=== PATIENT | female | born 1950 | race Caucasian/White ===

== ENCOUNTER 2019-11-14 13:52 | Observation (INO) | payer MEDICARE, SELFPAY ==
--- NOTE | ~2019-11-14 | US_ITS ---
EXAMINATION: US carotid duplex BI DATE: 11/15/2019 10:25 INDICATION: Right hemiparesis. TECHNIQUE: Grayscale, color Doppler, and pulsed Doppler images of the cervical carotid arteries were obtained. The degree of vessel stenosis is placed in one of the following categories: normal, <50%, 5 0-69%, >=70% but less than near-occlusion, near-occlusion, or total occlusion. Note that percent sten osis relative to normal distal artery lumen diameter is indirectly measured from velocity measurement s as described by Aristides, et al. Radiology 2003; 229:340-346. COMPARISON: None. FINDINGS: RIGHT: The right common carotid artery (CCA) peak systolic velocity (PSV) is 98 cm/s. The right internal car otid artery (ICA) PSV is 92 cm/s. The right ICA end-diastolic velocity (EDV) is 18 cm/s. The right IC A/CCA PSV ratio is 0.9. Grayscale and color Doppler images yield an estimate of <50% diameter reducti on from plaque in the ICA. There is antegrade flow in the right vertebral artery. LEFT: The left CCA PSV is 111 cm/s. The left ICA PSV is 136 cm/s. The left ICA EDV is 19 cm/s. The left ICA /CCA PSV ratio is 1.2. Grayscale and color Doppler images yield an estimate of <50% diameter reductio n from plaque in the ICA. There is antegrade flow in the left vertebral artery. IMPRESSION: 1. <50% stenosis in the right internal carotid artery. 2. <50% stenosis in the left internal carotid artery. Reviewed, dictated and finalized at location A.
--- NOTE | ~2019-11-14 | CT_ITS ---
EXAMINATION: CTA brain carotid EXAM DATE: 11/16/2019 10:27 INDICATION: Right hemiparesis. TECHNIQUE: Noncontrast head CT. Spiral CTA of the carotid arteries was performed with intravenous i njection 100 cc of Omnipaque 350. Axial, coronal, sagittal reformatted images reviewed. Additional r eformatted images created on dedicated 3-D workstation. NASCET comparable standard used to assess th e degree of arterial stenosis. Spiral CT angiogram cerebral arteries performed with the same intrave nous injection of contrast. Source images of the brain CTA transferred to dedicated workstation for 3 -D rotational image creation. Coronal, sagittal maximum intensity pixel images also reviewed. The d ose-length product (DLP) for this examination was 1673.65 mGy-cm. The exposure was tailored accordi ng to patient size, and iterative reconstruction (ASIR) was used as additional dose reduction techniq ue. Correlation is made to brain MRI examination 11/15/2019. FINDINGS: There is mild bilateral carotid bulb and siphon the left vertebral artery is dominant. Lisa rial sclerosis with 0% stenosis bilaterally. There is no carotid or vertebral basilar arterial disse ction or fibromuscular dysplasia. There are no cerebral artery aneurysms. There is symmetric cerebral artery arborization. The sagittal, transverse and sigmoid sinuses enhance normally, no venous sinus thrombosis. Internal cerebral veins also enhance normally. There is no acute intraparenchymal hemorrhage. No evidence of intraparenchymal brain mass lesion. N o evidence of acute infarction. There is mild to moderate periventricular and subcortical hypodensity , nonspecific but probably related to small vessel ischemic disease. There is mild prominence of th e sulci and ventricles related to cerebral atrophy. There is intracranial carotid arteriosclerosis. There is no mass effect or midline shift. There is no obstructive hydrocephalus suspected. There are no extra-axial collections. There are no calvarial acute fractures. Lung apices are clear. There is advanced cervical arthropathy. IMPRESSION: 1. No cervical arterial dissection or cerebral artery aneurysm. Bilateral 0% carotid stenosis. 2. Microangiopathy and cerebral atrophy. 3. Cervical spondylosis. Reviewed, dictated and finalized at location A. IMPRESSION: 1. No cervical arterial dissection or cerebral artery aneurysm. Bilateral 0% c arotid stenosis. 2. Microangiopathy and cerebral atrophy. 3. Cervical spondylosis.
--- NOTE | ~2019-11-14 | MR_ITS ---
EXAMINATION: MR brain/brain stem wo con DATE: 11/15/2019 15:44 INDICATION: Stroke symptoms with right hemiparesis. TECHNIQUE: Magnetic resonance imaging (MRI) of the brain and brainstem was performed without intraven ous contrast. Sequences included sagittal and axial T1-weighted SE, axial diffusion-weighted FS SE, a xial T2*-weighted GRE, axial T2-weighted FLAIR, and axial T2-weighted FSE. Apparent diffusion coeffic ient (ADC) maps were created. COMPARISON: None. FINDINGS: There are no areas of restricted diffusion to suggest acute infarction. No intracranial hemorrhage or abnormal intracranial mass lesion. There are scattered areas of nonspecific increased T2-weighted si gnal intensity in the cerebral white matter, predominantly involving the deep and periventricular whi te matter. There are no intraparenchymal signal abnormalities seen on the other pulse sequences. The ventricles are symmetric and normal in size with normal variant cavum septum pellucidum. There are no abnormal extra-axial fluid collections. Flow voids are seen in the cerebral arteries on the T2-weigh david sequences consistent with their expected patency. Small right mastoid effusion. Mild mucosal thic kening in the bilateral ethmoid sinuses. Visualized orbits and soft tissues are unremarkable. IMPRESSION: 1. No acute stroke or other acute intracranial process. 2. Scattered periventricular predominant nonspecific white matter T2 hyperintensity which is within n ormal limits for age and likely sequela of chronic small vessel ischemic disease. Reviewed, dictated and finalized at location A. IMPRESSION: 1. No acute stroke or other acute intracranial process. 2. Scattered periventricular predominant nonspecific white matter T2 hyperinten sity which is within normal limits for age and likely sequela of chronic small vessel ischemic disease.
--- NOTE | ~2019-11-14 | MR_ITS ---
EXAMINATION: MR cervical spine wo con DATE: 11/15/2019 20:42 INDICATION: Right upper extremity weakness and numbness. TECHNIQUE: Magnetic resonance imaging (MRI) of the cervical spine was performed without intravenous c ontrast. Sequences included sagittal T2-weighted FSE, sagittal T2-weighted FS FSE, sagittal T1-weight ed FSE, axial MERGE and axial T2-weighted FSE. COMPARISON: None FINDINGS: Evaluation mildly limited by mild to moderate motion artifact on the axial sequences and mild motion blurring on the sagittal sequences. Mild reversal of the normal cervical lordosis. 2 mm anterolisthes is C7 on T1. Vertebral body heights are normal. Prominent ossification along the anterior longitudina l ligament of C4-C7. Bone marrow signal intensity is normal. Moderate to severe disc height loss at C 4-C5, C5-C6 and C6-C7. Mild disc height loss at C7-T1. Cord signal intensity is normal. Cervical soft tissues are unremarkable. The following disc levels are specifically discussed: C2-C3: Disc is bulging. There is mild bilateral uncovertebral joint osteoarthritis. There is moderate bilateral facet joint osteoarthritis. There is mild bilateral neural foraminal stenosis. There is mo derate central canal stenosis measuring 6 mm AP in the mid sagittal plane and intending both the dors al and ventral surfaces of the cord. C3-C4: The disc does not extend beyond the endplate margin. There is mild bilateral uncovertebral pablito nt osteoarthritis. There is mild right and severe left facet joint osteoarthritis. There is old right and moderate left neural foraminal stenosis. There is no central canal stenosis. C4-C5: The disc does not extend beyond the endplate margin. There is severe bilateral uncovertebral j oint osteoarthritis. There is mild bilateral facet joint osteoarthritis. There is mild to moderate ri ght and moderate left neural foraminal stenosis. There is no central canal stenosis. C5-C6: Disc is mildly bulging. There is severe bilateral uncovertebral joint osteoarthritis. There is mild bilateral facet joint osteoarthritis. There is moderate bilateral neural foraminal stenosis. Th ere is mild central canal stenosis. C6-C7: Disc is mildly bulging. There is severe bilateral uncovertebral joint osteoarthritis. There is mild left and moderate right facet joint osteoarthritis. There is mild right and moderate left neura l foraminal stenosis. There is mild central canal stenosis. C7-T1: Disc is bulging. There is no uncovertebral joint osteoarthritis. There is severe bilateral fac et joint osteoarthritis. There is mild bilateral neural foraminal stenosis. There is mild central can al stenosis. IMPRESSION: 1. Severe cervical spondylosis. Reviewed, dictated and finalized at location A.
[2019-11-14 14:20] VITALS: BP 132/73; PULSE 76; RESP 18; TEMP 37.7; O2SAT 96
--- NOTE | 2019-11-14 14:45 | ADMGEN ---
This patient, Sheryl Obrien, was admitted to [facility] Surg Room 329-01. Patient/family oriented to hospital policies and general routines including ID bracelet, bed and alarms, visiting hours, pain management, procedures, bathroom and other care routines, personal items, smoking policy, room service/diet, and visiting hours. Valuables list has been completed. Information on how to activate the Rapid Response Team has been discussed. Patient/Family are encouraged to report perceived risks to care and to ask questions if they do not understand what they are told or what they should do.
[2019-11-14 16:43] VITALS: BMI 20.9
[2019-11-14 17:00] VITALS: PULSE 84
--- NOTE | 2019-11-14 19:00 | PM.IMHP ---
H&P: HPI History of Present Illness Chief complaint: Stroke symptoms and chest pain. Narrative: Sheryl Obrien is a 69-year-old female smoker with history of stroke, coronary artery disease, hypertension, COPD, and lupus who is being directly admitted to the hospitalist service from the emergency department at [facility] for further evaluation of stroke symptoms and chest pain. She presented to the emergency department at the outside hospital earlier today with complaints of midsternal chest heaviness associated with some mild shortness of breath as well as garbled speech, right hand weakness, and right arm tingling. It is also noted that she was seen at that emergency department yesterday with chest pain, and was discharged home. Regarding the chest pain, the patient tells me that it was essentially there when she got up this morning and is not necessarily associated with activities. She had some mild shortness of breath with that, but goes on to say that is not unusual for her to have shortness of breath. It does not sound as though she has had any chest pain since not long after going to the emergency department today. She tells me that for the past 2 days her speech has been garbled (she is edentulous and does not wear dentures, and she does admit that at time some people cannot understand her very well) and this morning she had right hand weakness and numbness/tingling in the right upper extremity. She is now complaining of pain, that she has a difficult time describing, in the right forearm only. All symptoms resolved in the emergency department at the outside hospital, and have not returned. She denies vertigo, auditory and visual changes, palpitations, and cardiac dysrhythmia (although occasionally she will have racing heart which she attributes to stress). Review of Systems Review of Systems: Narrative: Twelve systems were reviewed with pertinent positives and negatives as per HPI. No fever, chills, or sweats. She has a chronic smoker's cough which is unchanged. No recent cold or flu symptoms. No pleuritic pain. She denies lower extremity edema and calf pain. No history of venous thromboembolism. She has chronic back pain due to arthritis of the spine. Except as documented, all other systems were reviewed and are negative. [facility] Past Medical History Medical History (Updated 11/14/19 @ 22:15 by Caryl G. Gerling, PA-C) Bipolar disorder Cerebrovascular accident Chronic obstructive pulmonary disease With history of stent. Patient of Dr. Cervantes. Coronary artery disease Depression with anxiety Dyslipidemia Essential hypertension Kidney stones Osteoarthritis of spine Schizophrenia She was diagnosed with this many years ago, but more recently another psychiatrist has told her that she does not have schizophrenia however she does have auditory hallucinations for which she takes Haldol. Systemic lupus erythematosus Tobacco dependence Surgical History Surgical History (Updated 11/14/19 @ 22:11 by Caryl Smith PA-C) History of cardiac catheterization With history of stent. History of cholecystectomy History of hysterectomy History of tubal ligation Family History Family History Father Acute myocardial infarction Mother Acute myocardial infarction Sibling Acute myocardial infarction Social History Social History (Updated 11/14/19 @ 22:12 by Caryl Smith PA-C) Social History: The patient lives in [place] with her . They have 5 children. She smokes between 1 to 1.5 packs of cigarettes per day. She denies alcohol and illicit substance abuse. She designates her , Lucian, as her surrogate decision maker and she wishes to be a full code. Smoking packs per day: 1 Smoking cigarettes per day: 20.0 Years smoked: 44 Smoking pack-years: 44.00 Smoking status: Current every day smoker Tobacco type: cigarettes
[2019-11-14 20:00] VITALS: PULSE 80
[2019-11-14 22:45] VITALS: BP 124/87; PULSE 80; RESP 20; TEMP 36.9; O2SAT 93
[2019-11-14 22:50] LABS: Troponin I < 0.012 ng/mL (0.000-0.034)
[2019-11-14] MEDS: LOVASTATIN 20 MG TABLET 40 MG PO (22:58)
[2019-11-14] MEDS: MIRTAZAPINE 15 MG TABLET PO (22:58)
[2019-11-14] MEDS: HALOPERIDOL 5 MG TABLET 15 MG PO (22:58)
[2019-11-14] MEDS: BENZTROPINE MESYLATE 0.5 MG TABLET PO (22:58)
[2019-11-14] MEDS: BACLOFEN 10 MG TABLET PO (22:58)
[2019-11-15] VITALS (9 sets, daily range): BP systolic 104–137; BP diastolic 67–84; PULSE 63–111; RESP 14–18; TEMP 36.2–37.2; O2SAT 92–97
--- NOTE | 2019-11-15 | ECHO_ITS ---
Patient Info Name: Sheryl Obrien Age: 69 years : 1950 Gender: Female Ht: 64 in Wt: 122 lbs BSA: 1.58 m2 HR: 73 bpm BP: 129 / 84 mmHg Heart Rhythm: Sinus Rhythm Technical Quality: Good Exam Date: 11/15/2019 2:46 PM Exam Location: [facility] Pulmonary Patient Status: Outpatient Admit Date: 11/14/2019 Staff Ordering Physician: Gena Salazar PA-C Shop Helper: Rhoda Brush RDCS Attending Provider: Gena Salazar PA-C Referring Physician: Martin LAZO; Exam Type: CA echo doppler color flow Study Info Indications - chest pain Complete two-dimensional, color flow and Doppler transthoracic echocardiogram is performed. Summary 1. Left ventricular systolic function is normal, estimated at 60-65%. 2. The left ventricular diastolic function is grade I diastolic dysfunction. 3. Right ventricular chamber dimension is normal. 4. No significant valvular pathology. Left Ventricle Left ventricular chamber dimension is normal. Left ventricular systolic function is normal, estimated at 60-65%. The left ventricular diastolic function is grade I diastolic dysfunction. Right Ventricle Right ventricular chamber dimension is normal. Left Atria Left atrial chamber dimension is normal. Right Atria Right atrial chamber dimension is normal. Aortic Valve The aortic valve is normal. Pulmonic Valve The pulmonic valve is normal. Mitral Valve The mitral valve has normal leaflets. There is no mitral valve regurgitation. Tricuspid Valve The tricuspid valve leaflets are normal. Pericardium/Pleural The pericardium appears normal. Aorta The aortic root size at the sinus of Valsalva is normal. Left Ventricular Outflow Tract Name Value Normal LVOT 2D LVOT Diameter 2.0 cm LVOT Doppler LVOT Peak Gradient 4 mmHg LVOT Mean Gradient 2 mmHg LVOT VTI 19 cm LVOT VTI/AV VTI Ratio 0.9 LVOT Stroke Volume 63 ml LVOT CO 15.0 l/min LVOT CI 9.5 l/min/m2 Pulmonic Valve Name Value Normal PV Doppler PV Peak Gradient 2 mmHg Mitral Valve Name Value Normal MV Doppler MV Decel [place] 200 cm/s2 MV PHT 84 ms MV Area (PHT) 2.6 cm2 4.0-5.0 MV Diastolic Function MV E Peak Velocity 58 cm/s
[2019-11-15 07:28] LABS: Folic Acid 16.4 ng/mL (2.76->20)
[2019-11-15] MEDS: BACLOFEN 10 MG TABLET PO ×2 (08:15→16:50)
[2019-11-15] MEDS: FLUOXETINE HCL 20 MG CAP PO (08:15)
[2019-11-15] MEDS: lisinopriL 10 MG TABLET PO (08:15)
[2019-11-15] MEDS: CLOPIDOGREL BISULFATE 75 MG TABLET PO (08:15)
[2019-11-15] MEDS: BENZTROPINE MESYLATE 0.5 MG TABLET PO ×2 (08:16→16:50)
[2019-11-15] MEDS: ISOSORBIDE MONONITRATE 30 MG TAB.ER.24H PO ×2 (08:16→16:50)
[2019-11-15] MEDS: HALOPERIDOL 5 MG TABLET 15 MG PO ×2 (08:16→16:51)
--- NOTE | 2019-11-15 15:15 | PCOTNOTE ---
Attempted OT evaluation. Patient out for MRI. Will continue to attempt.
--- NOTE | 2019-11-15 15:43 | PM.CNCAR ---
Assessment and Plan Additional Plan 69-year-old lady with history of hypertension, smoking and some coronary artery disease with previous intervention in [place] a number of years ago. She was transferred [facility] from their institutions emergency room yesterday evening because of symptoms concerning for the possibility of a CVA and apparently there is no neurological excellence consultant at their institution. Earlier in the day she had some chest pain that sounds sharp and atypical of ischemia. Her biomarkers do not show any evidence of an acute coronary syndrome. She is not having any chest pain symptoms since then. At this time I do not believe we need to initiate an ischemia workup at our hospital since the symptoms are very atypical. The principal reason for her being at [place] is to assess her neurological status and that will be deferred to the primary team and the Neurology excellence consultant. At this time I do not have any specific cardiac recommendations to make. I will follow her with you while she is at this hospital Jake Oneill MD [facility] History of Present Illness History of Present Illness Consult date/time: date of service:11/15/19 15:43 Consult reason: chest pain Reason For Visit: Stroke symptoms and chest pain. Narrative: This is a 69-year-old lady with whom I have not previously seen being evaluated at the request of the hospitalist because of chest pain. The patient is unknown to me prior to this encounter. She apparently has a history of coronary artery disease having undergone previous percutaneous revascularization by her stack attendant to practice is over in [place]. She actually came to the emergency room [place] last night not with obvious cardiac complaints but with complaints concerning for a CVA. She indicated she had some slurring of the speech and some weakness in the right upper and lower extremity. Presumably because there is no Neurology excellence consultant available at that hospital she was transferred over here to a [facility] for evaluation. She states that she still has some weakness in the right arm and can't lift it above the shoulder length easily. She also has some ongoing slurring of her speech. She indicates her lower right leg seems to be pretty much back to normal. Before all this started yesterday she had some chest pain as well that was self-limited she thinks it lasted about 30 minutes she is very hard to pin down exactly when that occurred but it was earlier in the day. It was a dull sensation to sometimes which she described as a shooting pain that was in the region of the left precordium. Was not associated with shortness of breath nausea vomiting or diaphoresis. She can't really recall or tell me much in the way of history of symptoms she had at the time of her coronary intervention or she can she recall exactly when that might of been done other than to state that it was just within the last several years. She follows regularly with her stack attendant over there and indicates that she was felt to be doing fairly well. Her electrocardiogram does not show any evidence of an acute ischemic event her biomarkers are unremarkable. In this setting I am seeing her this afternoon in consultation. Apparently a couple of weeks before this she had some sort of febrile illness with a cough and so for that reason she was being tested for a Coronavirus. A short time before seeing her the collins virus sample has been reported as negative. Principal risk factors include smoking and a longstanding history of hypertension. Review of Systems Constitutional: Constitutional: Reports lethargy Eyes: Eyes: Reports no additional eye complaints ENT: Reports system reviewed and no additional complaints, except as documented Cardiovascular: Cardiovascular: Reports as per HPI Respiratory: Respiratory: Reports dyspnea on exertion Gastrointestinal: Gastrointestinal: Reports no additional gastrointestinal
--- NOTE | 2019-11-15 16:41 | WPDNEURCNPN ---
Assessment and Plan Assessment and plan (1) Psychiatric illness: Code(s): F99 - Mental disorder, not otherwise specified Status: Acute (2) Dyslipidemia: Code(s): E78.5 - Hyperlipidemia, unspecified Status: Acute (3) Stroke-like symptoms: Code(s): R29.90 - Unspecified symptoms and signs involving the nervous system Status: Acute (4) Chest pain: Code(s): R07.9 - Chest pain, unspecified Status: Acute (5) Tobacco dependence: Code(s): F17.200 - Nicotine dependence, unspecified, uncomplicated Status: Acute (6) Chronic obstructive pulmonary disease: Code(s): J44.9 - Chronic obstructive pulmonary disease, unspecified Status: Acute (7) Essential hypertension: Code(s): I10 - Essential (primary) hypertension Status: Acute Additional Plan I will recommend an other day stay here and get an MRI of the cervical spine CTA of the brain and the carotid an add low-dose aspirin to her Plavix which she is taking because of the history of having had stents placed in her heart and also because she had the DVT Consult date: 11/15/19 Time Seen: 16:00 HPI: Sheryl Obrien is a 69 year old female this 69-year-old right-handed woman was admitted as a transfer from the [facility] because of symptoms of possible stroke which included slurring of the speech more than usual and right-sided weakness she tells me that she was there couple of days ago had the MRI done and was negative however she presented again and was transferred here she also had the chest pain that was the predominant complaint which has subsided she has seen by the mammography technician and he does not feel any cardiac workup is necessary however she still has residual right upper extremity weakness which is at least 4- over 5 and the subtle right lower extremity weakness denies any headache nausea vomiting chest pain shortness of breath fever chills or sore throat Review of Systems Review of Systems: All systems reviewed & are unremarkable except as noted in HPI and below PMFSH Past Medical History Medical History Bipolar disorder Cerebrovascular accident Chronic obstructive pulmonary disease With history of stent. Patient of Dr. Cervantes. Coronary artery disease Depression with anxiety Dyslipidemia Essential hypertension Kidney stones Osteoarthritis of spine Schizophrenia She was diagnosed with this many years ago, but more recently another psychiatrist has told her that she does not have schizophrenia however she does have auditory hallucinations for which she takes Haldol. Systemic lupus erythematosus Tobacco dependence Surgical History Surgical History History of cardiac catheterization With history of stent. History of cholecystectomy History of hysterectomy History of tubal ligation Family History Family History Father Acute myocardial infarction Mother Acute myocardial infarction Sibling Acute myocardial infarction Social History Social History Social History: The patient lives in [place] with her . They have 5 children. She smokes between 1 to 1.5 packs of cigarettes per day. She denies alcohol and illicit substance abuse. She designates her , Lucian, as her surrogate decision maker and she wishes to be a full code. Smoking packs per day: 1 Smoking cigarettes per day: 20.0 Years smoked: 44 Smoking pack-years: 44.00 Smoking status: Current every day smoker Tobacco type: cigarettes Second hand tobacco smoke exposure: No Alcohol intake: former Substance use: current Substance use type: marijuana Other substance usage details: just here and there with marijuana Gender identity (if verbalized by the patient): Female Spiritual c
[2019-11-15] MEDS: LOVASTATIN 20 MG TABLET 40 MG PO (16:50)
[2019-11-15] MEDS: ASPIRIN 81 MG ENTERIC TABLET PO (16:50)
--- NOTE | 2019-11-15 16:54 | PM.IMPN ---
Progress Note: A&P Assessment and Plan (1) Stroke-like symptoms: Code(s): R29.90 - Unspecified symptoms and signs involving the nervous system Status: Acute Assessment and Plan: The patient reported dysarthria for 2 days prior to admission as well as right upper extremity weakness and paresthesias. She was not a candidate for tPA since her sx were present for 2 days prior to presentation. Brain MRI was negative for acute infarct, hemorrhage, and mass lesion. She does have evidence of scattered periventricular nonspecific white matter which likely represents chronic small vessel disease. Neurology is on board and recommendations are greatly appreciated. Plan to begin ASA EC 81mg and continue plavix. Continue statin. Continue neuro checks. She has weakness with shoulder abduction and flexion. Plan for CTA head and neck and MRI cervical spine. Will check Acetylcholine Receptor Ab. (2) Chest pain: Qualifiers: Chest pain type: other chest pain Qualified Code(s): R07.89 - Other chest pain Code(s): R07.9 - Chest pain, unspecified Status: Resolved Assessment and Plan: The patient reported an episode of chest pain yesterday at presentation to [place]. The She has a hx of CAD and follows with Dr. Cervantes for primary cardiology. Will continue isosorbide mononitrate and clopidogrel. Troponin was negative. Echo is pending. Telemetry was reviewed with sinus rhythm. Cardiology is on board and recommendations are greatly appreciated. Will continue to monitor. (3) Essential hypertension: Code(s): I10 - Essential (primary) hypertension Status: Acute Assessment and Plan: Blood pressures were reviewed and are well-controlled. Continue benazepril. Will continue to monitor. (4) Dyslipidemia: Code(s): E78.5 - Hyperlipidemia, unspecified Status: Acute Assessment and Plan: LFTs were reviewed and are within normal limits. Will continue lovastatin. (5) Chronic obstructive pulmonary disease: Code(s): J44.9 - Chronic obstructive pulmonary disease, unspecified Status: Acute Assessment and Plan: Chronic and not in acute exacerbation. She is not on any inhalers. (6) Tobacco dependence: Code(s): F17.200 - Nicotine dependence, unspecified, uncomplicated Status: Acute Assessment and Plan: She is a current 1-1.5 PPD smoker. I have encouraged smoking cessation. She declines the need for a nicotine patch. Will continue to encourage smoking cessation. (7) Psychiatric illness: Code(s): F99 - Mental disorder, not otherwise specified Status: Acute Assessment and Plan: The patient has a hx of depression, anxiety, bipolar disorder, and possible schizophrenia. Continue haloperidol, benztropine (she takes this due to tremors that she relates to Haldol), mirtazapine, and fluoxetine. Subjective Date/time seen: 11/15/19 16:54 Interval history: Mrs. Obrien is seen and examined at bedside in follow-up for RUE weakness and paresthesias and dysarthria. She is requesting to go home. She reports weakness in the RUE but does note that it seems to be improving.. She denies chest pain and shortness of breath. She denies palpitations. She denies vision change. She has no other complaints at this time. She is tolerating PO intake well. Review of Systems Review of Systems: All systems reviewed & are unremarkable except as noted in HPI and below Exam Narrative: Exam Narrative: General: Pleasant and well-developed 69 y.o. female sitting up in bed in no acute distress. Head: Normocephalic and atraumatic. Conjunctivae and lids normal. PERRL. EOMI. Mucous membranes are moist and pt is edentulous. Posterior pharynx without erythema or exudate. Neck: Supple without lymphadenopathy or masses. Cardiac: Regular rate and rhythm. S1 and S2 normal. No murmur appreciated. No JVD. No carotid bruits. Lungs: Effort normal. Lungs are clear to auscul
[2019-11-15] MEDS: MIRTAZAPINE 15 MG TABLET PO (20:19)
--- NOTE | 2019-11-15 20:21 | PC.NURSE ---
Pt to MRI at this time.
[2019-11-15] MEDS: ACETAMINOPHEN 325 MG TABLET 650 MG PO (23:56)
[2019-11-16] VITALS: PULSE 69
[2019-11-16 02:20] VITALS: BP 112/74; PULSE 75; RESP 16; TEMP 36.6; O2SAT 96
[2019-11-16 04:00] VITALS: PULSE 68
--- NOTE | 2019-11-16 05:00 | ECG_ITS ---
Measurements Intervals [place] Rate: 71 P: 62 LA: 177 QRS: -10 QRSD: 88 T: 48 QT: 407 QTc: 443 Interpretive Statements SINUS RHYTHM NONSPECIFIC ST ELEVATION IN ANT/INF LEADS- PROBABLY EARLY REPOLARIZATION BASELINE WANDER- V2-V4 BORDERLINE ECG Electronically Signed On 11-16-2019 7:15:22 CDT by Aiden Cobb D.O.
[2019-11-16] MEDS: NITROGLYCERIN SL 0.4 MG TABLET SUBLINGUAL (05:09)
[2019-11-16] MEDS: MAG HYDROX/AL HYDROX/SIMETH 30 ML UDC PO (05:26)
[2019-11-16 05:41] LABS: Hematocrit 39.3 % (37.0-47.0); Mean Corpuscular HGB Conc 33.1 g/dl (32-36); Mean Corpuscular Hemoglobin 31.4 pg (26-34); Mean Corpuscular Volume 94.9 fl (80-100); Mean Platelet Volume 9.5 fl (7.4-10.4); Platelet Count Result 280 k/mm3 (150-375); Red Blood Count 4.14 M/mm3 (4.2-5.4); Red Cell Distribution Width 13.8 % (11.5-14.5)
[2019-11-16 05:46] LABS: Alanine Aminotransferase 11 U/L (4-35); Albumin Level 3.7 g/dL (3.5-5.1); Alkaline Phosphatase 88 U/L (38-126); Aspartate Amino Transferase 23 U/L (14-36); Bilirubin,Total 0.4 mg/dL (0.2-1.3); Blood Urea Nitrogen 10 mg/dL (7-17); Calcium 9.4 mg/dL (8.4-10.2); Carbon Dioxide 30 mmol/L (22-30); Chloride 99 mmol/L (98-107); Estimated CRCL calculation 93 ml/min; Estimated Glomerular Filt Rate > 60; Glucose 84 mg/dL (65-105); Magnesium 1.9 mg/dL (1.6-2.3); Potassium 3.5 mmol/L (3.4-5.0); Sodium 133 mmol/L (137-145)
[2019-11-16 05:53] LABS: Troponin I < 0.012 ng/mL (0.000-0.034)
[2019-11-16 06:00] VITALS: BP 136/85; PULSE 77; RESP 18; TEMP 36.6; O2SAT 98
[2019-11-16 08:00] VITALS: PULSE 71
[2019-11-16] MEDS: HALOPERIDOL 5 MG TABLET 15 MG PO (09:15)
[2019-11-16] MEDS: lisinopriL 10 MG TABLET PO (09:16)
[2019-11-16] MEDS: FLUOXETINE HCL 20 MG CAP PO (09:16)
[2019-11-16] MEDS: ASPIRIN 81 MG ENTERIC TABLET PO (09:16)
[2019-11-16] MEDS: BENZTROPINE MESYLATE 0.5 MG TABLET PO (09:16)
[2019-11-16] MEDS: BACLOFEN 10 MG TABLET PO (09:16)
[2019-11-16] MEDS: ISOSORBIDE MONONITRATE 30 MG TAB.ER.24H PO (11:25)
[2019-11-16] MEDS: CLOPIDOGREL BISULFATE 75 MG TABLET PO (11:25)
--- NOTE | 2019-11-16 11:48 | WPDNEUROPN ---
Progress Note: A&P Assessment and Plan (1) Psychiatric illness: Code(s): F99 - Mental disorder, not otherwise specified Status: Acute (2) Dyslipidemia: Code(s): E78.5 - Hyperlipidemia, unspecified Status: Acute (3) Stroke-like symptoms: Code(s): R29.90 - Unspecified symptoms and signs involving the nervous system Status: Acute (4) Chest pain: Qualifiers: Chest pain type: other chest pain Qualified Code(s): R07.89 - Other chest pain Code(s): R07.9 - Chest pain, unspecified Status: Resolved (5) Tobacco dependence: Code(s): F17.200 - Nicotine dependence, unspecified, uncomplicated Status: Acute (6) Chronic obstructive pulmonary disease: Code(s): J44.9 - Chronic obstructive pulmonary disease, unspecified Status: Acute (7) Essential hypertension: Code(s): I10 - Essential (primary) hypertension Status: Acute (8) Ankylosing spondylitis of cervical region: Code(s): M45.2 - Ankylosing spondylitis of cervical region Status: Acute Additional Plan reviewed all studies ,nothing very significant to consider surgical intervention ,home today and follow in the office in 8 weeks Review of Systems Review of Systems: All systems reviewed & are unremarkable except as noted in HPI and below Exam Const: General: cooperative, comfortable, no acute distress, awake and Physically active Nutritional Appearance: average body habitus Orientation/consciousness: patient oriented x3 Limitations: no limitations HENMT: Head: normal to inspection Eyes: General: appearance normal, both eyes and all related structures Neck: Neck: full ROM and no lymphadenopathy Chest: Chest palpation & inspection: normal inspection of the chest Resp: Effort & Inspection: normal respiratory effort and able to speak in complete sentences Auscultation: clear to auscultation bilaterally Cardio: Rate: regular rate Rhythm: regular rhythm GI: Auscultation: normal bowel sounds Skin: General skin exam: no rashes or lesions noted Neuro: General: patient oriented x3 and moves all extremities Cranial nerves: Yes CN's II-XII intact bilaterally, Yes Equal, round and reactive pupils present, Yes Bilaterally intact EOM present, Yes Nystagmus not present, Yes Normal facial strength present, Yes facial symmetry, Yes Midline tongue present, Yes Normal hearing present, Yes Ability to bilaterally rotate head present and Yes Ability to bilaterally elevate shoulders present Cognition (Neuro): normal cognition Speech: normal speech Gait exam (Neuro): Normal gait present Motor exam (neuro): 5/5 motor strength present throughout Sensory Exam: normal sensation Deep tendon reflexes (DTR's): Right triceps reflex intensity grade: 1+, Left triceps reflex intensity grade: 1+, Rt Biceps (C5, C6): 1+, Left biceps reflex intensity grade: 1+, Right brachioradialis reflex intensity grade: 1+, Left brachioradialis reflex intensity grade: 1+, Right patellar reflex intensity grade: 1+, Left patellar reflex intensity grade: 1+, Right ankle reflex intensity grade: 1+ and Left ankle reflex intensity grade: 1+ Plantar Reflex Responses: downgoing: bilateral Coordination: [id number] test normal Romberg Test: Negative Extrem: General: full ROM Psych: Appearance: grossly normal Affect: normal affect Attitude: cooperative Thought process: Normal thought process present Insight: Good insight present (Psych) Judgement: Fair judgement present (Psych) Objective Data Vital Signs Vital Signs: Vital Signs - 24 hr 11/15/19 12:00 11/15/19 14:00 11/15/19 20:00 Temperature 36.2 C L Pulse Rate 91 83 82 Respiratory Rate 16 Blood Pressure 137/75 Pulse Oximetry 97 11/15/19 22:00 11/16/19 00:00 11/16/19 02:20 Temperature 36.6 C 36.6 C Pulse Rate 76 69 75 Respiratory Rate 18 16 Blood Pressure 122/77 112/74 Pulse Oximetry 96 96 11/16/19 04:00 11/16/19 06:00 11/16/19
[2019-11-16 12:00] VITALS: PULSE 85
--- NOTE | 2019-11-16 13:26 | PM.DS ---
DS: Admitting Diagnosis Admitting Diagnosis Admitting Diagnosis: Chest pain, unspecified DS: Discharge Diagnosis Discharge Diagnosis (1) Stroke-like symptoms: Code(s): R29.90 - Unspecified symptoms and signs involving the nervous system Status: Acute (2) Chest pain: Qualifiers: Chest pain type: other chest pain Qualified Code(s): R07.89 - Other chest pain Code(s): R07.9 - Chest pain, unspecified Status: Resolved (3) Essential hypertension: Code(s): I10 - Essential (primary) hypertension Status: Acute (4) Dyslipidemia: Code(s): E78.5 - Hyperlipidemia, unspecified Status: Acute (5) Chronic obstructive pulmonary disease: Code(s): J44.9 - Chronic obstructive pulmonary disease, unspecified Status: Acute (6) Tobacco dependence: Code(s): F17.200 - Nicotine dependence, unspecified, uncomplicated Status: Acute (7) Psychiatric illness: Code(s): F99 - Mental disorder, not otherwise specified Status: Acute DS: Summary Hospital Course Reason for hospitalization: Mrs. Obrien is a 69 y.o. female with PMH significant for hx of CVA, current 1PPD smoker, hypertension, dyslipidemia, bipolar disorder, CAD, depression, hypertension, and lupus who was directly admitted from [facility] to [facility] for further evaluation of sx concerning for stroke. She reported garbled speech and right upper extremity weakness and paresthesias. She reported that her neurological sx resolved shortly after presentation to the ED. She also complained of chest pain. Troponin was ordered and was negative at <0.012. EKG was negative for acute ischemic changes. Neurology evaluated the patient. MRI brain was negative for acute infarction, hemorrhage, and mass lesion. Chronic small vessel disease was present. She was on plavix prior to admission and ASA EC 81mg was also added per neurology. Carotid doppler and CTA head and neck were negative for carotid stenosis. Cervical spine MRI revealed severe cervical spondylosis. She was cleared from a neurology standpoint to discharge and advised to follow-up with neurology in 8 weeks. She was evaluated by cardiology and further ischemia workup was not recommended as her pain was very atpical and not felt to be due to acute coronary syndrome. She was advised to follow-up with her primary purchasing internship, Dr. Cervantes. The patient requested to leave as her sx resolved and she felt much better. She was advised to follow-up with neurology for her severe cervical spondylosis with possible referral to neurosurgery at that time due to her weakness with right shoulder abduction, felt to be due to her C5-C6 disease. She is a current 1-1.5 PPD smoker and smoking cessation was encouraged. She was discharged in stable condition on the afternoon of 11/16/19. Time spent discussing smoking cessation with patient: more than 10 minutes Status at Discharge Functional status at discharge: independent ambulation Overall status at discharge: patient is back to baseline Time Spent with Patient Time attestation: Total time spent providing and/or coordinating discharge services: 35 minutes Exam Narrative: Exam Narrative: Vitals at presentation: Temp Pulse Resp BP Pulse Ox 99.8 F H 76 18 132/73 96 11/14/19 14:20 11/14/19 14:20 11/14/19 14:20 11/14/19 14:20 11/14/19 14:20 Vitals at discharge: Temp Pulse Resp BP Pulse Ox 98 F 85 18 136/85 98 11/16/19 06:00 11/16/19 12:00 11/16/19 06:00 11/16/19 06:00 11/16/19 06:00 General: Very pleasant and well-developed 69 y.o. female sitting in the chair in no acute distress. HEENT: Normocephalic and atraumatic. Conjuncti
[2019-12-04 16:07] LABS: Acetylchol Receptor Binding Ab <0.30 nmol/L
--- NOTE | 2019-12-06 10:26 | PC.NURSE ---
ACH receptor Ab is WNL.
== END 2019-11-16 14:50 | disposition home or self-care (01) ==
PROVIDERS: Family Medicine; Physician Assistant; Admitting Provider Internal Medicine; PCP Internal Medicine; Visit Provider Hospitalist
DX: R29.90 Unspecified symptoms and signs involving the nervous system (principal); M47.892 Other spondylosis, cervical region; R07.89 Other chest pain; I10 Essential (primary) hypertension; E78.5 Hyperlipidemia, unspecified; J44.9 Chronic obstructive pulmonary disease, unspecified; F17.210 Nicotine dependence, cigarettes, uncomplicated; R44.0 Auditory hallucinations; F41.8 Other specified anxiety disorders; F31.9 Bipolar disorder, unspecified; I25.10 Atherosclerotic heart disease of native coronary artery without angina pectoris; M32.9 Systemic lupus erythematosus, unspecified; Z79.899 Other long term (current) drug therapy; Z86.73 Personal history of transient ischemic attack (TIA), and cerebral infarction without residual deficits
CPT/HCPCS: 36415; 70496; 70498; 70551; 72141; 80053; 82607; 82746; 83735; 84238; 84443; 84484; 85027; 93005; 93306; 93880; 97161; A9270; G0378; Q9967